=== PATIENT | male | born 1995 | race Caucasian/White ===

== ENCOUNTER 2018-04-26 11:41 | Day surgery (SDC) | payer OTHER ==
[2018-04-19 16:44] VITALS: BMI 26.6
[2018-04-26] MEDS ORDERED: MIDAZOLAM HCL 2 MG/2 ML SINGLE DOSE VIAL ONE (13:11)
[2018-04-26] MEDS ORDERED: PROPOFOL 20 ML ONE (13:11)
[2018-04-26] MEDS ORDERED: LIDOCAINE HCL/PF 2% SDV 5ML VIAL ONE (13:12)
[2018-04-26] MEDS ORDERED: ceFAZolin SODIUM 1 GM VIAL ONE (13:55)
[2018-04-26] MEDS ORDERED: BUPIVACAINE HCL/PF 2.5 MG/ML - 30 ML VIAL IJ ONE (14:11)
[2018-04-26] MEDS ORDERED: ONDANSETRON 4 MG/2 ML VIAL ONE (14:12)
[2018-04-26] MEDS ORDERED: DEXAMETHASONE SOD PHOSPHATE 4 MG/1 ML VIAL ONE (14:12)
[2018-04-26] MEDS ORDERED: KETOROLAC TROMETHAMINE 30 MG/1 ML VIAL ONE (14:12)
[2018-04-26] MEDS ORDERED: GUM MASTIC/STORAX/MSAL/ALCOHOL 1 DRP DROPSBTL MC ONE (14:44)
[2018-04-26] MEDS ORDERED: BUPIVACAINE HCL/PF 0.25% (2.5MG/ML) 10 ML VIAL IJ ONE (14:53)
[2018-04-26] MEDS ORDERED: oxyCODONE HCL 5 MG TABLET PO PRN ×2 (15:16)
[2018-04-26] MEDS ORDERED: PROMETHAZINE HCL 25 MG/1 ML VIAL IVPB PRN (15:16)
[2018-04-26] MEDS ORDERED: ONDANSETRON 4 MG/2 ML VIAL IVPUSH PRN (15:16)
[2018-04-26] MEDS ORDERED: oxyCODONE HCL 5 MG TABLET ONE (16:41)
[2018-04-26 17:24] VITALS: BP 110/64; PULSE 71; TEMP 98
--- NOTE | 2018-04-27 08:59 | OP ---
DATE OF OPERATION: 04/26/2018 PREOPERATIVE DIAGNOSES: 1. Right hook of hamate fracture nonunion. 2. Right ulnar neuropathy. POSTOPERATIVE DIAGNOSES: 1. Right hook of hamate fracture nonunion. 2. Right ulnar neuropathy. OPERATIVE PROCEDURE: 1. Repair of right hook of hamate nonunion with hook of hamate excision. 2. Right ulnar nerve decompression at wrist. SURGEON: Rashid Roe MD BLANKET INSPECTOR: ISIDRO Crowley ANESTHESIA: General. COMPLICATIONS: None. ESTIMATED BLOOD LOSS: Minimal. INDICATION FOR PROCEDURE: The patient is a 22-year-old male with the above finding, indicated for operative treatment. Risks, benefits, and alternatives were discussed with the patient at length. Proper informed consent was obtained. PROCEDURE: After proper identification of the patient and the correct operative site, patient was brought to the operating room and placed supine on the operative table. Prominences were well padded. General anesthesia provided by the anesthesiologist, adequate for the procedure. Intravenous antibiotics given. Timeout procedure was performed. Right upper extremity was prepped and draped in usual sterile fashion. A well-padded tourniquet was placed as well as a sterile prep. An Esmarch bandage was used to exsanguinate the right upper extremity. Tourniquet was inflated to 250 mmHg. A longitudinal incision was made in the proximal aspect of the palm in line with the hook of the hamate. Incision was taken sharply through the skin, with blunt and sharp dissection through the subcutaneous tissues. Hypothenar muscles were carefully teased off of the capsule over the hook of the hamate. The ulnar neurovascular bundle was carefully identified, and the ulnar nerve was neurolysed in this area. There was no evidence of damage to the nerve. The hook of the hamate was identified and subperiosteal dissection, taking care to protect the contents of the carpal canal as well as the Guyon canal, was carefully done. Once the hook of the hamate was freed and the nonunion site was identified, it was removed in whole. The hook of the hamate base was smoothed with a rasp, and there were no other sharp or abrasive areas left. The contents of the carpal canal were carefully identified, and there was some synovitis but no evidence of any tendon rupture or partial tendon ruptures. The wound was irrigated with copious amounts of normal saline and repaired with a 5-0 nylon suture. Sterile dressings were applied. Patient was reversed from anesthesia and brought to Recovery in stable condition. He tolerated the procedure well. John Verdugo, the event marketing assistant, was integral throughout this procedure. Procedure could not have been performed without a skilled operative event marketing assistant. RASHID ROE M.D. [id number]
--- NOTE | 2018-05-05 13:34 | PATH ---
Surgical Pathology Report Patient Name: [facility]. Rec. #: [id number] /Age/Gender: 1995 (Age: 22) / M Account: [id number] Location: [facility] Taken: 04/26/2018 Received: 04/26/2018 Reported: 05/05/2018 Physicians: Rashad King M.D. Specimen(s) Received HOOK OF RIGHT HAMATE Clinical History Right hook of hamate Final Diagnosis HOOK OF RIGHT HAMATE, EXCISION: CARTILAGE-CAPPED BONE AND FIBROCOLLAGENOUS TISSUE WITH NO PATHOLOGIC FINDINGS. Electronically Signed Rosita Orlando M.D. Gross Description Received in formalin labeled "hook of right hamate," is a 1.5 x 1.4 x 0.5 cm harris portion of bone. The specimen is bisected and entirely submitted in one cassette, following decalcification. 04/28/201804/28/2018
== END 2018-04-26 17:20 | disposition home or self-care (01) ==
LOC: FASU 11:41
PROVIDERS: ATTEND Orthopaedic Surgery Hand Surgery
PROC: 0PTM0ZZ Resection of Right Carpal, Open Approach (ICD-10-PCS; 2018-04-26)
PROC: 01S40ZZ Reposition Ulnar Nerve, Open Approach (ICD-10-PCS; 2018-04-26)
PROC: 0PBM0ZZ Excision of Right Carpal, Open Approach (ICD-10-PCS; principal; 2018-04-26 13:30)
DX: S62.154A Nondisplaced fracture of hook process of hamate [unciform] bone, right wrist, initial encounter for closed fracture (principal); G56.21 Lesion of ulnar nerve, right upper limb; X58.XXXA Exposure to other specified factors, initial encounter; Y93.9 Activity, unspecified; Y92.9 Unspecified place or not applicable
CPT/HCPCS: 88304-TC; 88311-TC; 94760